=== PATIENT | male | born 1960 | race Caucasian/White ===

== ENCOUNTER 2019-11-18 13:41 | Emergency (ER) | payer OTHER ==
[~2019-11-18] VITALS: Ht 167.6 cm; Wt 72.6 kg
[~2019-11-18 13:41] MED LIST: HUMALOG100 U/ML SC; LANTUS SOLOS100 U/M1
[2019-11-18 13:51] VITALS: Ht 167.6 cm; Wt 72.6 kg
[2019-11-18 17:13] VITALS: BP 145/71
== END 2019-11-18 17:13 | disposition home or self-care (01) ==
LOC: ED 13:41
DX: L97.811 Non-pressure chronic ulcer of other part of right lower leg limited to breakdown of skin (principal); I10 Essential (primary) hypertension; E11.9 Type 2 diabetes mellitus without complications; M10.9 Gout, unspecified